=== PATIENT | female | born 1975 | race Caucasian/White ===

== ENCOUNTER 2022-11-18 01:35 | Emergency (ER) | payer SELFPAY ==
[2022-11-18 02:12] LABS: Bilirubin Negative (Negative); Blood, Urine Negative (Negative); Clarity Clear (Clear); Glucose, Urine (Dipstick) Normal (Negative); Ketone, Urine Negative (Negative); Leukocyte Negative Leu/uL (Negative); Nitrite Negative (Negative); Protein, Urine (Dipstick) Negative (Neg-Trace); Specific Gravity, Urine 1.008 (1.002-1.036); Urobilinogen Normal mg/dL (Less than 2); pH, Urine 5.5 (5.0-9.0)
[2022-11-18] MEDS ORDERED: Ketorolac Tromethamine 30 MG/ML VIAL ONE (03:21)
[2022-11-18 04:17] LABS: #Basophils 0.1 thou/uL (0.0-0.2); #Eosinphils 0.2 thou/uL (0.0-0.7); #Neutrophils 4.3 thou/uL (1.40-6.50); %Basophils 1.5 % (0.0-1.0); %Eosinophils 2.5 % (0.0-10.0); %Lymphocytes 41.2 % (21.0-51.0); %Monocytes 9.9 % (0.0-10.0); %Neutrophils 44.8 % (42.0-75.0); Hemoglobin 15.1 g/dL (12.0-16.0); Mean Corpuscular HGB CONC 34.3 g/dL (32.0-36.0); Mean Corpuscular Hemoglobin 32.1 pg (27.0-31.0); Mean Corpuscular Volume 93.6 fl (78.0-98.0); Mean Platelet Volume 6.8 fL (7.4-10.4); Platelet Count 338 10x3/uL (130-400); RBC Distribution Width 12.1 % (11.5-14.5); Red Blood Cell (RBC) Count 4.71 mill/uL (4.20-5.40); White Blood Cell (WBC) Count 9.7 10x3/uL (4.8-10.8)
[2022-11-18 04:43] LABS: ALT (SGPT) 50 U/L (8-55); AST (SGOT) 40 U/L (5-34); Albumin 4.1 g/dL (3.5-5.0); Alkaline Phosphatase 78 U/L (40-110); Anion Gap 14 mmol/L (10-20); BUN (Urea Nitrogen) 16 mg/dL (7.0-18.7); Bilirubin, Total 0.3 mg/dL (0.2-1.2); Calc. Creatinine Clearance 0 mL/min (70-130); Calcium 9.4 mg/dL (7.8-10.44); Carbon Dioxide 21 mmol/L (22-29); Chloride 108 mmol/L (98-107); Estimated GFR 89; Globulin 3.1 g/dL (2.4-3.5); Glucose 101 mg/dL (70-105); Protein, Total 7.2 g/dL (6.0-8.3); Sodium 139 mmol/L (136-145)
== END 2022-11-18 05:08 | disposition home or self-care (01) ==
LOC: ERS 01:35
DX: R10.9 Unspecified abdominal pain (principal); M54.9 Dorsalgia, unspecified; F17.200 Nicotine dependence, unspecified, uncomplicated
CPT/HCPCS: 36415; 74176; 80053; 81003; 85025; 87086; 96372; J1885